=== PATIENT | male | born 1960 | race Caucasian/White ===

== ENCOUNTER 2021-03-12 16:18 | Outpatient (RCR) | payer OTHER ==
[~2021-03-12 16:18] MED LIST: NORCO 325 MG-51 TAB PO
== END 2021-03-21 08:31 | disposition home or self-care (01) ==
LOC: PT.GENESIS 16:18
DX: S42.251A Displaced fracture of greater tuberosity of right humerus, initial encounter for closed fracture (principal)

== ENCOUNTER 2021-03-21 15:00 | Outpatient (RCR) | payer OTHER | END 2021-03-23 | LOC: PT.GENESIS | DX: S42.251D Displaced fracture of greater tuberosity of right humerus, subsequent encounter for fracture with routine healing (principal); G56.01 Carpal tunnel syndrome, right upper limb ==

== ENCOUNTER 2021-04-19 08:15 | Outpatient (RCR) | payer OTHER | END 2021-04-23 | disposition home or self-care (01) | LOC: PT.GENESIS | DX: S42.251D Displaced fracture of greater tuberosity of right humerus, subsequent encounter for fracture with routine healing (principal) ==

== ENCOUNTER → 2021-05-21 | Outpatient (RCR) | payer OTHER | END | disposition home or self-care (01) | LOC: PT.GENESIS | DX: S42.251D Displaced fracture of greater tuberosity of right humerus, subsequent encounter for fracture with routine healing (principal); X58.XXXD Exposure to other specified factors, subsequent encounter ==

== ENCOUNTER 2021-06-18 08:00 | Outpatient (RCR) | payer OTHER | END 2021-06-21 | disposition home or self-care (01) | LOC: PT.GENESIS | DX: S42.251D Displaced fracture of greater tuberosity of right humerus, subsequent encounter for fracture with routine healing (principal); X58.XXXD Exposure to other specified factors, subsequent encounter ==